=== PATIENT | female | born 1960 | race Caucasian/White ===

== ENCOUNTER → 2017-07-20 | Outpatient (CLI) | payer OTHER | LOC: M RAD 09:05 | DX: R91.8 Other nonspecific abnormal finding of lung field (principal) | CPT/HCPCS: 71250 ==

== ENCOUNTER → 2017-07-20 | Outpatient (CLI) | payer OTHER ==
[2017-07-20 09:52] LABS: BASO # 0.2 10^3/uL (0.0-0.2); BASO % 1.2 % (0.0-1.0); EOS # 0.8 10^3/uL (0.0-0.50); EOS % 6.3 % (0.0-3.0); HEMATOCRIT 45.1 % (36.0-47.0); HEMOGLOBIN 15.4 g/dl (12.0-15.5); IMMATURE GRANULOCYTE % 0.3 % (0-3.0); LYMPH # 2.5 10^3/uL (1.5-4.5); LYMPH % 18.5 % (24.0-44.0); MEAN CORPUSCULAR HEMOGLOBIN 30.9 pg (27.0-33.0); MEAN CORPUSCULAR HGB CONC 34.1 g/dl (32.0-36.5); MEAN CORPUSCULAR VOLUME 90.6 fl (80.0-96.0); MONO # 1.1 10^3/uL (0.0-0.8); MONO % 8.2 % (0.0-5.0); NEUTROPHILS # 8.8 10^3/uL (1.8-7.7); NEUTROPHILS % 65.5 % (36.0-66.0); PLATELET COUNT, AUTOMATED 450 10^3/uL (150-450); RED BLOOD COUNT 4.98 10^6/uL (4.00-5.40); RED CELL DISTRIBUTION WIDTH 13.7 % (11.5-14.5); WHITE BLOOD COUNT 13.4 10^3/uL (4.0-10.0)
[2017-07-20 10:35] LABS: ALT/SGPT 22 U/L (12-78); ANION GAP 9 MEQ/L (8-16); AST/SGOT 7 U/L (7-37); BLOOD UREA NITROGEN 8 MG/DL (7-18); CALCIUM LEVEL 9.4 MG/DL (8.5-10.1); CARBON DIOXIDE LEVEL 29 MEQ/L (21-32); CHLORIDE LEVEL 106 MEQ/L (98-107); CHOLESTEROL LEVEL 270 MG/DL (<200); CHOLESTEROL RISK RATIO 5.192 (<5); CPK CREATINE PHOSPHOKINASE 101 U/L (26-192); CREATININE FOR GFR 0.78 MG/DL (0.55-1.30); GLOMERULAR FILTRATION RATE > 60.0 (>51); GLUCOSE, FASTING 80 MG/DL (70-100); HDL CHOLESTEROL 52 MG/DL (>40); LDL CHOLESTEROL 170.4 MG/DL (<100); NON-HDL-C 218 MG/DL; POTASSIUM SERUM 4.3 MEQ/L (3.5-5.1); SODIUM LEVEL 144 MEQ/L (136-145); TRIGLYCERIDES LEVEL 238 MG/DL (<150)
== END ==
LOC: M LAB 09:25
DX: J44.9 Chronic obstructive pulmonary disease, unspecified (principal); E78.4 Other hyperlipidemia; R06.02 Shortness of breath
CPT/HCPCS: 84460

== ENCOUNTER → 2018-09-11 | Outpatient (CLI) | payer OTHER ==
[~2018-09-11] MED LIST: ADV100INH INH; ADV250INH INH; ALBU0.084 INH; AUGM875T27 PO; BISAC5TA PO; COMBIN INH; IPRA2IN INH; IPRATROPIUM BROMIDE INH; ISOVUE-370 76% 100ML VIAL (Q9967) As Ordered ONE; LEVO500T PO; MUCI600T34 PO; OMEP40CA2 PO; PRED-351 PO; PRED1TAB32 PO; PRED20TA PO; SPIRIVA HANDIHALER INH; TYLE650T30 PO; VENTAER INH; ZITH250T PO; [UNRECOGNIZED DRUG - CODE] PO
--- NOTE | 2018-09-12 08:30 | REP ---
Clinical: Evaluate for aortic aneurysm. Technique: Contrast enhanced CT using angiographic technique from the thoracic inlet to the upper abdomen with multiplanar and 3-D MIP re-formations. 100 ml Isovue 70 intravenous contrast material administered without complication. Findings: Stable ascending thoracic aortic aneurysm measures 4.4 cm maximal diameter at the aortic root and tapers through the aortic arch with the proximal descending aorta measuring 1.9 cm maximal diameter. Major vessels of the thoracic aortic arch are normal in appearance and caliber without aneurysmal dilatation. No periaortic inflammatory stranding or fluid identified. Bilateral lung saha demonstrate advanced COPD/emphysematous changes with scattered fibrosis and scarring primarily involving the mid to upper lung zones. No acute consolidation, significant nodule or mass lesion appreciated. Tracheobronchial tree is patent. No effusion. No pneumothorax. No adenopathy. Surrounding musculoskeletal structures are intact. Impression: 1. Stable ascending thoracic aortic aneurysm measuring 4.4 cm maximal diameter. 2. Advanced COPD/emphysematous changes with scattered scarring and fibrosis. Electronically Signed by Rinku Medel MD 09/12/2018 08:21 A
== END ==
LOC: M RAD 13:00
PROVIDERS: ATTEND Internal Medicine Cardiovascular Disease
DX: I71.2 Thoracic aortic aneurysm, without rupture (principal); J44.9 Chronic obstructive pulmonary disease, unspecified; J84.10 Pulmonary fibrosis, unspecified
CPT/HCPCS: 71275; Q9967

== ENCOUNTER 2019-04-23 19:29 | Emergency (ER) | payer OTHER ==
[~2019-04-23] VITALS: Ht 142.2 cm; Wt 40.5 kg
[~2019-04-23 19:29] MED LIST changes: -ISOVUE-370 76% 100ML VIAL (Q9967) As Ordered ONE
[2019-04-23] MEDS ORDERED: IBUPROFEN 400 MG TAB PO ONE (20:00)
[2019-04-23] MEDS ORDERED: MOTR200T44 PO (21:00)
[2019-04-23 21:10] VITALS: BP 116/74
--- NOTE | 2019-04-23 21:41 | REP ---
Clinical: Trauma. Fall. Technique: Four views of the left hemithorax. Findings: Nondisplaced fracture involving the posterolateral aspect of the left eighth and ninth ribs identified. Impression: Posterior lateral nondisplaced left eighth and ninth rib fractures. Electronically Signed by Rinku Medel MD 04/23/2019 09:32 P
== END 2019-04-23 21:25 | disposition home or self-care (01) ==
LOC: M ED 19:29
DX: S22.42XA Multiple fractures of ribs, left side, initial encounter for closed fracture (principal); W07.XXXA Fall from chair, initial encounter; Y92.018 Other place in single-family (private) house as the place of occurrence of the external cause; J45.909 Unspecified asthma, uncomplicated; I25.10 Atherosclerotic heart disease of native coronary artery without angina pectoris; F17.210 Nicotine dependence, cigarettes, uncomplicated

== ENCOUNTER 2021-07-03 12:58 | Outpatient (RCR) | payer OTHER ==
[~2021-07-03 12:58] MED LIST changes: +MOTR200T44 PO
== END 2021-07-07 | disposition other institution, planned readmission (95) ==
LOC: M ONCR 12:58
PROVIDERS: ATTEND General Practice
DX: C34.11 Malignant neoplasm of upper lobe, right bronchus or lung (principal); Z53.09 Procedure and treatment not carried out because of other contraindication